=== PATIENT | female | born 1980 | race Caucasian/White ===

== ENCOUNTER 2018-07-17 11:05 | Emergency (ER) | payer OTHER ==
--- OUTSIDE RECORDS SUMMARY | 2018-07-17 11:12 | XMS REPORT ---
:1980 External Reference #:[id number] Author Organization [facility] Address [address] [place] [address] Phone [phone] Care Team Providers Name Role Phone Mindi Skinner M.D. Care Team Information Education Research Analyst Unavailable Mindi Skinner M.D. Primary Care Physician Unavailable Payers Type Date Identification Numbers Payment Provider Subscriber Health Maintenance Effective: Policy Number: [facility] [place] [facility]) 10/01/2016 [id number] [employer] PayID: [id number] [address] [place] [address] Problems Date Description Provider Status Onset: 07/27/2017 Anxiety state Mindi Skinner M.D. Active Family History Date Family Member(s) Problem(s) Comments Father No Current Problems Mother No Current Problems Social History Type Date Description Comments Lives With Spouse Lives With Son Cigarette Use Never Smoked Cigarettes ETOH Use Rare Smoking Patient has never smoked Daily Caffeine Daily Caffeine Exercise Type/Frequency Exercises regularly Allergies, Adverse Reactions, Alerts Date Description Reaction Status Severity Comments 03/19/2017 NKDA active Medications Medication Date Status Form Strength Qnty SIG Indications Ordering Provider Nitrofurantoin 07/14/ Active Capsules 100mg 10cap take one N39.0 Awa C. Monohyd Macro 2017 s by mouth Bang, twice LAY OUT DRAFTER daily for 5 days. Phenazopyridine 07/14/ Active Tablets 200mg 4tabs take one N39.0 Awa C. HCL 2018 by mouth Bang, 3 times LAY OUT DRAFTER daily as needed for pain Alprazolam 03/19/ Active Tablets 0.5mg 15tab take one Mindi 2016 s tablet by marcy Skinner M.D. twice daily as needed for anxiety Tessalon Perles 10/08/ Hx Capsules 100mg 30cap take one J04.0 Awa Peck 2017 - s by mouth Bang, 3 times LAY OUT DRAFTER 2017 daily as needed for cough Acetaminophen-Cod 10/08/ Hx Tablets 300-30mg 15tab take one J06.9 Awa CKeyla cheri #3 2017 - s by mouth Bang, 07/12/ every 6 LAY OUT DRAFTER 2018 hours as needed for cough. may take 2 as one dose at bedtime. Fluticasone 06/15/ Hx Suspension 50mcg/Act 29.7m 1 puff H69.93 Mindi Propionate 2017 - l each Brody, 07/27/ buck Butt 2016 everyday No Active Unknown Medications 2016 - 2016 Immunizations CPT Code Status Date Vaccine Lot # [id number] Given 08/08/2017 Influenza Vac, Quadrivalent, Slit Virus, Im Vital Signs Date Vital Result Comment 07/14/2018 BP Systolic 104 mmHg BP Diastolic 60 mmHg Heart Rate 60 /min Body Temperature 99.0 F Respiratory Rate 16 /min Height 66 inches 5'6" Weight 127.38 lb BMI (Body Mass Index) 20.6 kg/m2 10/08/2017 BP Systolic 94 mmHg BP Diastolic 68 mmHg Heart Rate 80 /min Body Temperature 98.1 F Respiratory Rate 18 /min O2 % BldC Oximetry 96 % Height 66 inches 5'6" Weight 128.00 lb BMI (Body Mass Index) 20.7 kg/m2 10/05/2017 BP Systolic 96 mmHg BP Diastolic 50 mmHg Heart Rate 74 /min Body Temperature 98.0 F Height 66 inches 5'6" Weight 132.00 lb BMI (Body Mass Index) 21.3 kg/m2 07/27/2017 BP Systolic 122 mmHg BP Diastolic 72 mmHg Heart Rate 60 /min Body Temperature 98.6 F Height 66 inches 5'6" Weight 129.25 lb BMI (Body Mass Index) 20.9 kg/m2 07/01/2017 BP Systolic 128 mmHg BP Diastolic 84 mmHg Heart Rate 60 /min Body Temperature 97.5 F Respiratory Rate 16 /min Height 66 inches 5'6" Weight 132.00 lb BMI (Body Mass Index) 21.3 kg/m2 06/15/2017 BP Systolic 90 mmHg BP Diastolic 60 mmHg Heart Rate 48 /min Body Temperature 97.1 F Respiratory Rate 16 /min Height 66 inches 5'6" Weight 132.00 lb BMI (Body Mass Index) 21.3 kg/m2 03/19/2017 BP Systolic 92 mmHg BP Diastolic 64 mmHg Heart Rate 60 /min Body Temperature 98.4 F Respiratory Rate 16 /min Height 66 inches 5'6" Weight 130.25 lb BMI (Body Mass Index) 21.0 kg/m2 Results Test Date Test Result H/L Range Note Laboratory test finding 10/05/2017 Quickstrep negative Negative Laboratory test finding 07/27/2017 TSH 2.49 mIU/L 0.50-6.00 Complete Blood Count 07/27/2017 WBC 7.0 x10^3/UL 3.6-9.6 RBC 4.34 x10^6/UL 3.90-5.70 HGB 13.2 g/dL 12.1-17.2 HCT 38 % 36-50 MCV 89.0 fL 82.2-97.4 MCH 30.5 pg 27.6-33.3 MCHC 34.5 g/dL 33.0-35.5 RDW 13.4 % 11.6-13.7 PLT 284 x10^3/UL 150-400 MPV 7.2 fL Low 7.4-10.4 Gran # 4.7 x10^3/UL 1.5-7.2 Lymph# 2.0 x10^3/UL 0.7-4.9 [place]gs# 0.3 x10^3/UL 0.1-0.9 Gran % 66.3 % 42.2-75.2 Lymph % 28.8 % 20.5-51.1 [place]% 4.9 % 1.7-9.3 Comprehensive Metabolic Prof 07/27/2017 Sodium 139 mEq/L 134-149 Potassium 4.0 mEq/L 3.6-5.5 Chloride 102 mEq/L 94-112 Carbon Dioxide 24 mEq/L 21-32 Glucose 128 mg/dL High 70-105 BUN 16 mg/dL 6-26 Creatinine 0.7 mg/dL 0.6-1.4 BUN/Creat Ratio 22.9 CALC 8.0-36.0 Calcium 9.2 mg/dL 8.6-10.2 Total Protein 7.1 g/dL 6.4-8.3 Albumin 4.7 g/dL 3.8-5.5 Globulin 2.4 g/dL 2.0-4.8 A/G Ratio 2.0 CALC 0.6-2.3 Alk. Phosphatase 47 U/L 30-110 Alt (SGPT) 9 U/L 7-35 Ast (Sgot) 15 U/L 5-34 Total Bilirubin 0.4 mg/dL 0.2-1.3 GFR Non- >60 ml/min/1.73m^ >=60 GFR >60 ml/min/1.73m^ >=60 Ua - Non Micro (Fma) 03/19/2017 Appearance clear Color yellow Glucose, Urine (Fma/CMC/CTX) neg Bilirubin neg Ketones neg SP Grav 1.015 Blood neg PH 6.0 Protein neg Urobil 0.2 Nitrite neg Leukocytes (Fma/CMC/Centrex) neg Procedures Date CPT Code Description Status 10/08/2017 29239 Pulse Oximetry Completed Encounters Type Date Location Provider CPT E/M Dx Office Visit 10/08/2017 10:00a [place] [address] J04.0 J06.9 Office Visit 10/05/2017 3:45p Main Office Marilyn Phillips [facility] [address]697 J02.9 J04.0 Office Visit 07/27/2017 3:50p [facility] Mindi Skinner M.D. 55242 F41.9 K59.00 Office Visit 07/01/2017 11:10a Main Office Mindi Skinner M.D. 43658 R10.2 Office Visit 06/15/2017 3:00p [facility] Mindi Skinner M.D. 43338 H69.93 Office Visit 03/19/2017 3:00p [facility] Mindi Skinner M.D. 42088 N39.3 Plan of Care 07/14/2018 - Awa Cuenca NPN39.0 Urinary tract infection, site not specifiedNew Medication:Nitrofurantoin Monohyd Macro 100 mgPhenazopyridine HCL 200 mgComments:Call SANDRA if condition changes/worsens in any wayDrink plenty of fluidsAllComments:1. Patient has been queried about patient's goals/ preferences and functional/lifestyle goals at relevant visits. If relevant, describe: Has been discussed, noted above2. Treatment goals as explainedto the patient: see above3. Are there barriers to meeting treatment goals? Yes If Yes, please describe: Barriers include possible insurance limits, disease process, and difficulty with lifestyle changes4. Self-Management goals as described to the patient: Yes, see above As always, we strongly encourage a healthy diet and making physical activity a part of your every day life. If you have questions about how or where to start, please contact the office.
--- OUTSIDE RECORDS SUMMARY | 2018-07-17 11:12 | XMS REPORT ---
:1980 External Reference #:[id number] Author Organization [facility] Address [address] [place] [address] Phone [phone] Care Team Providers Name Role Phone Mindi Skinner M.D. Care Team Information Campground Caretaker Unavailable Mindi Skinner M.D. Primary Care Physician Unavailable Payers Type Date Identification Numbers Payment Provider Subscriber Health Maintenance Effective: Policy Number: [facility] [place] 10/01/2016 [id number] [employer] PayID: [id number] [address] [place] [address] Problems Date Description Provider Status Onset: 07/27/2017 [...] Macro 2017 s by mouth Bang, twice HERB GROWER daily for 5 days. Phenazopyridine 07/14/ Active Tablets 200mg 4tabs take one N39.0 Awa C. HCL 2018 by mouth Bang, 3 times HERB GROWER daily as needed for pain Alprazolam 03/19/ Active Tablets 0.5mg 15tab take one Mindi 2016 s tablet by marcy Skinner M.D. twice daily as needed for anxiety Tessalon Perles 10/08/ Hx Capsules 100mg 30cap take one J04.0 Awa Peck 2017 - s by mouth Bang, 3 times HERB GROWER 2017 daily as needed for cough Acetaminophen-Cod 10/08/ Hx Tablets 300-30mg 15tab take one J06.9 Awa CKeyla cheri #3 2017 - s by mouth Bang, 07/12/ every 6 HERB GROWER 2018 hours as needed for cough. may take 2 as one dose at bedtime. Fluticasone 06/15/ Hx Suspension 50mcg/Act 29.7m 1 puff H69.93 Mindi Propionate 2017 - l each Brody, 07/27/ buck Butt 2016 everyday No Active Unknown Medications 2016 - 2016 Immunizations CPT Code Status Date Vaccine Lot # [id number] Given 08/08/2017 Influenza Vac, Quadrivalent, Slit Virus, [...] Test Date Test Result H/L Range Note Ua - Micro (Fma) 07/14/2018 Appearance clear Color yellow Glucose, Urine (Fma/CMC/CTX) neg Bilirubin neg Ketones neg SP Grav 1.020 Blood trace-Lysed PH 6.5 Protein neg Urobil 0.2 Nitrite neg Leukocytes (Fma/CMC/Centrex) Trace Hyaline <pending> /Lpf Granular <pending> /Lpf WBC (Fma,Centrex) <pending> RBC <pending> Mucus <pending> /Lpf Epith <pending> /Lpf Bacteria <pending> /Hpf Amorphous <pending> /Lpf Crystals, Fluid (Fma/CMC/CTX) <pending> Z#Comments <pending> Laboratory test finding 10/05/2017 Quickstrep negative Negative [...] 4.7 x10^3/UL 1.5-7.2 Lymph# 2.0 x10^3/UL 0.7-4.9 [place]# 0.3 x10^3/UL 0.1-0.9 Gran % 66.3 % 42.2-75.2 Lymph % 28.8 % 20.5-51.1 [place]% 4.9 % 1.7-9.3 Comprehensive Metabolic Prof 07/27/2017 [...] Procedures Date CPT Code Description Status 10/08/2017 95627 Pulse Oximetry Completed Encounters Type Date Location Provider CPT E/M Dx Office Visit 10/08/2017 10:00a [place] [address] J04.0 J06.9 Office Visit 10/05/2017 3:45p Main Office RUI Shoemaker 28919 J02.9 J04.0 Office Visit 07/27/2017 3:50p [facility] Mindi Skinner M.D. 29816 F41.9 K59.00 Office Visit 07/01/2017 11:10a Main Office Mindi Skinner M.D. 29644 R10.2 Office Visit 06/15/2017 3:00p [facility] Mindi Skinner M.D. 70964 H69.93 Office Visit 03/19/2017 3:00p [facility] Office Mindi Skinner M.D. 53689 N39.3 Plan of Care 07/14/2018 - Awa Cuenca, NPN39.0 Urinary tract infection, site not specifiedNew [...]
[2018-07-17 11:16] VITALS: BP 136/84
--- NOTE | 2018-07-17 11:39 | UC ---
Complaint Female HPI - HPI Summary HPI Summary: pt was seen 3 days ago for UTI, rx'd nitrofurontoin, feeling only slightly better. still has burning frequent urine denies back pain - History Of Current Complaint Chief Complaint: UCGU Stated Complaint: URINARY ISSUE Time Seen by Provider: 07/17/18 11:22 Hx Obtained From: Patient Hx Last Menstrual Period: 07/05/18 ?: No Onset/Duration: Gradual Onset Severity Currently: Mild Pain Intensity: 3 Character: Burning Aggravating Factor(s): Urination Associated Signs And Symptoms: Positive: Negative. Negative: Fever, Back Pain, Vaginal Bleeding/Discharge - Allergies/Home Medications Allergies/Adverse Reactions: Allergies Allergy/AdvReac Type Severity Reaction Status Date / Time No Known Allergies Allergy Verified 07/17/18 11:17 PMH/Surg Hx/FS Hx/Imm Hx Previously Healthy: Yes - Surgical History Surgical History: None Surgery Procedure, Year, and Place: right eye surgery - Family History Known Family History: Negative: Cardiac Disease - Social History Occupation: Employed Full-time - teacher Lives: With Family Alcohol Use: None Substance Use Type: None Smoking Status (MU): Never Smoked Tobacco Review of Systems Constitutional: Negative Respiratory: Negative Cardiovascular: Negative Genitourinary: Dysuria, Frequency Musculoskeletal: Negative Neurological: Negative Psychological: Negative Is Patient Immunocompromised?: No All Other Systems Reviewed And Are Negative: Yes Physical Exam Triage Information Reviewed: Yes Appearance: Well-Appearing, No Pain Distress, Well-Nourished Vital Signs: Initial Vital Signs Temp 98.8 F 07/17/18 11:12 Pulse 104 07/17/18 11:12 Resp 12 07/17/18 11:12 BP 136/84 07/17/18 11:12 Pulse Ox 100 07/17/18 11:12 Vital Signs Reviewed: Yes Respiratory Exam: Normal Cardiovascular Exam: Normal Abdomen Description: Positive: Nontender, No Organomegaly, Soft. Negative: CVA Tenderness (R), CVA Tenderness (L) Psychological Exam: Normal Skin Exam: Normal Complaint Female Dx - Differential Dx/Diagnosis Differential Diagnosis/HQI/PQRI: Ureteral Stone, Urinary Tract Infection Provider Diagnoses: UTI Discharge - Sign-Out/Discharge Documenting (check all that apply): Patient Departure All imaging exams completed and their final reports reviewed: No Studies - Discharge Plan Condition: Good Disposition: HOME Prescriptions: Ciprofloxacin TAB* [Cipro 500 MG TAB*] 500 mg PO BID #10 tab Referrals: Mindi Skinner MD [Primary Care Provider] - 2 Days (if no better) Additional Instructions: stop current antibiotic Start cipro and take as prescribed Drink plenty of fluids - Billing Disposition and Condition Condition: GOOD Disposition: Home
== END 2018-07-17 11:49 | disposition home or self-care (01) ==
LOC: UCEAST 11:05
DX: N39.0 Urinary tract infection, site not specified (principal)
CPT/HCPCS: 81003; 87086; 99212; G0463

== ENCOUNTER 2018-07-31 05:05 | Emergency (ER) | payer OTHER ==
[2018-07-31] MEDS ORDERED: NS 0.9% 1000 ML* 1,000 ML IV ONE (05:29)
--- NOTE | 2018-07-31 05:30 | ED ---
Abdominal Pain/Female - HPI Summary HPI Summary: The pt is a 37 y/o female [facility] c/o of diffuse abd pain since 1 day ago worse today. The pain rated in severity is unrelieved by a heating pad. She denies nausea, vomiting, diarrhea, fever, SOB,CP and blood in urine. - History of Current Complaint Chief Complaint: EDAbdPain Stated Complaint: ABD PAIN Time Seen by Provider: 07/31/18 05:22 Hx Obtained From: Patient Hx Last Menstrual Period: 07/05/18 Severity Currently: Moderate Pain Intensity: 5 Pain Scale Used: 0-10 Numeric Location: Diffuse Associated Signs and Symptoms: Negative: Fever, Chest Pain, Urinary Symptoms - Blood in urine, Nausea, Vomiting Allergies/Adverse Reactions: Allergies Allergy/AdvReac Type Severity Reaction Status Date / Time No Known Allergies Allergy Verified 07/17/18 11:17 PMH/Surg Hx/FS Hx/Imm Hx Previously Healthy: No Musculoskeletal History: Denies: Hx Rheumatoid Arthritis, Hx Osteoporosis Sensory History: Denies: Hx Deafness Opthamlomology History: Denies: Hx Legally Blind - Surgical History Surgery Procedure, Year, and Place: right eye surgery Infectious Disease History: No Infectious Disease History: Denies: Traveled Outside the [place] in Last 30 Days - Family History Known Family History: Negative: Cardiac Disease - Social History Occupation: Employed Full-time Lives: With Family Alcohol Use: None Substance Use Type: Reports: None Smoking Status (MU): Never Smoked Tobacco Review of Systems Negative: Chest Pain Negative: Shortness Of Breath Positive: Abdominal Pain. Negative: Vomiting, Diarrhea, Nausea Genitourinary: Negative - Blood in urine All Other Systems Reviewed And Are Negative: Yes Physical Exam - Summary Physical Exam Summary: Appearance: Well appearing, no pain distress Skin: warm, dry, reflects adequate perfusion Head/face: normal Eyes: EOMI, DARRION ENT: normal Neck: supple, non-tender Respiratory: CTA, breath sounds present Cardiovascular: RRR, pulses symmetrical Abdomen: Tenderness in the RLQ , soft Bowel sounds : present Musculoskeletal: normal, strength/ROM intact Neuro: normal, sensory motor intact, A&Ox3 Triage Information Reviewed: Yes Vital Signs On Initial Exam: Initial Vitals Temp Pulse Resp BP Pulse Ox 99.1 F 124 16 133/80 99 07/31/18 05:06 07/31/18 05:06 07/31/18 05:06 07/31/18 05:06 07/31/18 05:06 Vital Signs Reviewed: Yes Diagnostics - Vital Signs Vital Signs Temp Pulse Resp BP Pulse Ox 07/31/18 05:06 99.1 F 124 16 133/80 99 - Laboratory Result Diagrams: 07/31/18 05:59 07/31/18 05:59 Lab Statement: Any lab studies that have been ordered have been reviewed, and results considered in the medical decision making process. Abdominal Pain Fem Course/Dx - Course Course Of Treatment: A 37 year-old F presents to the ED with a CC of diffuse abd pain since 1 day ago worse today. The pain rated in severity is unrelieved by a heating pad. She denies nausea, vomiting, diarrhea, fever, SOB,CP and blood in urine. A physical exam revealed tenderness in the RLQ. In the ED course ,the pt was given N,s 0.9% 1000ml IV which improved the symptoms. The pt was signed out to Dr. Maulik Wade MD at 07:00 duie to pending radiology reports. Allergies noted. - Diagnoses Differential Diagnosis: Positive: Appendicitis, Diverticulitis, Renal Colic Provider Diagnoses: Diverticulitis Discharge - Sign-Out/Discharge Documenting (check all that apply): Sign-Out Patient Signing out patient TO: Maulik Wade - 07:00- Pending imaging results - Discharge Plan Condition: Stable Disposition: HOME Prescriptions: Ciprofloxacin TAB* [Cipro 500 MG TAB*] 500 mg PO BID #20 tab metroNIDAZOLE TAB* [Flagyl 250 mg TAB*] 250 mg PO TID #30 tab Patient Education Materials: Ciprofloxacin (By mouth), Metronidazole (By mouth) , Diverticulitis (ED) Referrals: Mindi Skinner MD [Primary Care Provider] - 2 Days Additional Instructions: Return to the emergency department for new or worsening symptoms. - Billing Disposition and Condition Condition: STABLE Disposition: Home - Attestation Statements Document Initiated by Scribe: Yes Documenting Scribe: Dipti Jimenez Provider For Whom Scribe is Documenting (Include Credential): Dr. Calvin Waterman MD Scribe Attestation: Dipti Martines, scribed for Dr. Calvin Waterman MD on 07/31/18 at 2243. Scribe Documentation Reviewed: Yes Provider Attestation: The documentation as recorded by the scribe, Dipti Jimenez accurately reflects the service I personally performed and the decisions made by me, Dr. Calvin Waterman MD
--- OUTSIDE RECORDS SUMMARY | 2018-07-31 05:37 | XMS REPORT ---
:1980 External Reference #:[id number] Author Organization [facility] Address [address] [place] [address] Phone [phone] Care Team Providers Name Role Phone Mindi Skinner M.D. Care Team Information Bed Worker Unavailable Mindi Skinner M.D. Primary Care Physician Unavailable Payers Type Date Identification Numbers Payment Provider Subscriber Health Maintenance Effective: Policy Number: [facility] ([facility] [place] 10/01/2016 [id number] [employer] PayID: [id number] [address] [place] [address] Problems Date Description Provider Status Onset: 07/27/2017 [...] Macro 2017 s by mouth Bang, twice DATA SCIENTIST daily for 5 days. Phenazopyridine 07/14/ Active Tablets 200mg 4tabs take one N39.0 Awa C. HCL 2018 by mouth Bang, 3 times DATA SCIENTIST daily as needed for pain Alprazolam 03/19/ Active Tablets 0.5mg 15tab take one Mindi 2016 s tablet by marcy Skinner M.D. twice daily as needed for anxiety Tessalon Perles 10/08/ Hx Capsules 100mg 30cap take one J04.0 Awa Peck 2017 - s by mouth Bang, 3 times DATA SCIENTIST 2017 daily as needed for cough Acetaminophen-Cod 10/08/ Hx Tablets 300-30mg 15tab take one J06.9 Awakristen alonzo #3 2017 - s by mouth Bang, 07/12/ every 6 DATA SCIENTIST 2018 hours as needed for cough. may take 2 as one dose at bedtime. Fluticasone 06/15/ Suspension 50mcg/Act 29.7m 1 puff H69.93 Mindi Propionate 2017 - l each Brody, 07/27/ buck Butt 2016 everyday No Active Unknown Medications 2016 - 2016 Immunizations CPT Code Status Date Vaccine Lot # [id number] Given 08/08/2017 Influenza Vac, Quadrivalent, Slit Virus, Im Vital Signs Date Vital Result Comment 07/19/2018 BP Systolic 120 mmHg BP Diastolic 68 mmHg Heart Rate 88 /min Body Temperature 97.8 F Respiratory Rate 16 /min Height 66 inches 5'6" Weight 127.00 lb BMI (Body Mass Index) 20.5 kg/m2 07/14/2018 BP Systolic 104 mmHg BP Diastolic [...] Test Date Test Result H/L Range Note Urine Culture And 07/17/2018 Urine Culture SEE RESULT BELOW 1, 2 Sensitivities Poc Urinalysis 07/17/2018 Poc Glucose, Negative Negative Urine Poc Bilirubin, Urine Negative Negative Poc Ketone, Urine Negative Negative Poc Specific [place], Urine 1.020 1.010-1.030 Poc Blood, Urine Trace-intact Negative Poc pH, Urine 7.0 5-9 Poc Protein, Urine Negative Negative Poc Urobilinogen, Urine 0.2 Negative Poc Nitrite, Urine Negative Negative Poc Leukocytes, Urine Negative Negative Poc Color, Urine Yellow Poc Clarity, Urine Clear 3 Ua - Micro (Fma) 07/14/2018 Appearance clear Color yellow Glucose, Urine (Fma/CMC/CTX) neg Bilirubin neg Ketones neg SP Grav 1.020 Blood trace-Lysed PH 6.5 Protein neg Urobil 0.2 Nitrite neg Leukocytes (Fma/CMC/Centrex) Trace WBC (Fma,Centrex) 1-2 RBC 0-1 Epith occ /Lpf Bacteria trace /Hpf Laboratory test finding 10/05/2017 Quickstrep negative Negative [...] 4.7 x10^3/UL 1.5-7.2 Lymph# 2.0 x10^3/UL 0.7-4.9 [place]# 0.3 x10^3/UL 0.1-0.9 Gran % 66.3 % 42.2-75.2 Lymph % 28.8 % 20.5-51.1 [place]% 4.9 % 1.7-9.3 Comprehensive Metabolic Prof 07/27/2017 [...] Urobil 0.2 Nitrite neg Leukocytes (Fma/CMC/Centrex) neg 1 [id number] 2 SEE RESULT BELOW Name: MARILYN RAMÍREZ : [address]: Flo Lee MD Acct: [id number] Unit: [id number] AGE: 37 Location: [facility] Re07/17/18 SEX: F Status: DEP ER SPEC: [id number] JUAN: 07/17/18-[address] [facility] [address]: Cherry Beaulieu DATA SCIENTIST REQ: [id number] RECD: 07/17/18135 STATUS: ROSALIO HUNTLEY DR: Mindi Skinner MD [facility] _ SOURCE: URINE SPDESC: ORDERED: Urine Culture COMMENTS: [id number] Procedure Result Reported Site Urine Culture Final 07/18/18- 1215 ML No Growth (<1,000 CFU/mL) * ML - Main Lab . END OF REPORT DEPARTMENT OF PATHOLOGY, [address] [place] [address] Jose Larsen M.D. Director [facility] # [id number] 3 Light Bulb Tester: [id number] Procedures Date CPT Code Description Status 10/08/2017 37555 Pulse Oximetry Completed Encounters Type Date Location Provider CPT E/M Dx Office Visit 07/14/2018 6:45p [place] [address] N39.0 Office Visit 10/08/2017 10:00a [place] [address] J04.0 J06.9 Office Visit 10/05/2017 3:45p Main Office Marilyn Medranobetsy [facility] [address]267 J02.9 J04.0 Office Visit 07/27/2017 3:50p [facility] Office Mindi Skinner M.D. 97907 F41.9 K59.00 Office Visit 07/01/2017 11:10a Main Office Mindi Skinner M.D. 39342 R10.2 Office Visit 06/15/2017 3:00p [facility] Mindi Skinner M.D. 17589 H69.93 Office Visit 03/19/2017 3:00p [facility] Office Mindi Skinner M.D. 83574 N39.3 Plan of Care 07/19/2018 - Melba Hopkins, JUNIORN39.0 Urinary tract infection, site not specifiedNew Labs:Ua - Micro (Fma)Urine Culture & SensitivityNuswab VG+ Comments:take a total of 3 days of cipro then discontinue since UA clear, drink plenty of fluids, call if symptoms don't improve, you develop fever >100.4, vomiting or symptoms worsen Advised to call the office if experiencing symptoms. Patient verbalized understanding. UA marked improvement - no red blood cells, no WBC, no bacteria, no nitrates.R10.30 Lower abdominal pain, unspecifiedNew Xrays:Ultrasound Transvaginal Non-OBComments:patient instructed to call back if condition fails to improve or worsens. suspect BV due to pH but will await results from cultures.Z12.4 Encounter for screening for malignant neoplasm of cervixComments:I performed a pap smear, I will call you with abnormal results or send you a letter with normal results.AllComments:~B_~U_ Medication Management~b_~u_ Patient Understands medications he 's taking? Yes No Are there Barriers to Adherence? Yes No Has the patient been asked about herbal supplements and therapies, and OTC meds? Yes No ~B_~U_Care Plan~b_~u_1. Patient has been queried about patient's goals/ preferences and functional/lifestyle goals at relevant visits. If relevant, describe: na2. Treatment goals as explained to the patient: above3. Are there barriers to meeting treatment goals? Yes No If Yes, please describe:4. Self-Management goals as described to the patient:Yes NoAs always, we strongly encourage a healthy diet and making physical activity a part of your every day life. If you have questions about how or where to start, please contact the office.
[2018-07-31 06:06] LABS: ABS Basophils 0 10^3/ul (0-0.2); ABS Eosinophils 0.1 10^3/ul (0-0.6); ABS Monocytes 0.9 10^3/ul (0-0.8); ABS Neutrophils 10.1 10^3/ul (1.5-7.7); ABS Nucleated RBC 0 10^3/ul; Hematocrit 40 % (35-47); Hemoglobin 13.6 g/dl (12.0-16.0); Lymphocyte % 8.2 % (25-47); Mean Corpuscular HGB Conc 34 g/dl (31-36); Mean Corpuscular Hemoglobin 30 pg (27-31); Mean Corpuscular Volume 87 fL (80-97); Mean Platelet Volume 8.7 um3 (7.4-10.4); Nucleated Red Blood Cells % 0.1; Platelet Count 218 10^3/ul (150-450); Red Blood Count 4.59 10^6/ul (4.00-5.40); Red Cell Distribution Width 13 % (10.5-15); White Blood Count 12.2 10^3/ul (3.5-10.8)
[2018-07-31 06:15] LABS: INR 1.02 (0.77-1.02)
[2018-07-31 06:23] LABS: EGFR Non-African American 89.2 (>60)
[2018-07-31 07:26] LABS: Urine Appearance Cloudy; Urine Blood Negative (Negative); Urine Color Yellow; Urine Ketones Negative (Negative); Urine Protein Negative (Negative); Urine Specific Gravity 1.009 (1.010-1.030); Urine Urobilinogen Negative (Negative)
[2018-07-31] MEDS ORDERED: Iohexol 300* (CONTRAST) 10 ML SDV IV ONE (07:49)
--- NOTE | 2018-07-31 07:50 | ED ---
Progress - Progress Note Progress Note: HPI This patient is a 37 year old F presenting to [facility] accompanied by family with a chief complaint of RLQ abd pain that began on 07/30/2018 upon waking up. The patient rates the pain 6/10 in severity. Symptoms aggravated by nothing. Symptoms alleviated by nothing. Patient reports nausea and fever. Patient denies vaginal discharge and vaginal bleeding. Pt reports her last menstrual cycle was on 07/05/2018. PE VITAL SIGNS: Reviewed. GENERAL: Patient is a well-developed and nourished female who is lying comfortable in the stretcher. Patient is not in any acute respiratory distress. HEAD AND FACE: Normocephalic and atraumatic. EYES: PERRLA, EOMI x 2, No injected conjunctiva. EARS: Hearing grossly intact. Ear canals and tympanic membranes are WNL. MOUTH: Oropharynx within normal limits. NECK: Supple, trachea is midline, no adenopathy, no JVD. CHEST: Symmetric, no tenderness at palpation LUNGS: Clear to auscultation bilaterally. No wheezing or crackles. CVS: RRR, S1 and S2 present, no murmurs or gallops appreciated. ABDOMEN: Soft. No signs of distention. Positive bowel sounds. No rebound no guarding, and no masses palpated. No abdominal bruit or pulsations. Tenderness in RLQ. EXTREMITIES: FROM in all major joints, no edema, no cyanosis or clubbing. NEURO: Alert and oriented x 3. No acute neurological deficits. Speech is normal. SKIN: Dry and warm DIAG CT CT abdomen and pelvis reveals, per radiologist, 1. Normal appendix. 2. THERE IS IRREGULAR CIRCUMFERENTIAL MUCOSAL THICKENING OF THE SIGMOID COLON WITH AN ASSOCIATED DIVERTICULUM. THE DIFFERENTIAL INCLUDES AN INFECTIOUS OR NONINFECTIOUS INFLAMMATORY COLITIS. COLONIC MUCOSAL NEOPLASM IS ALSO WITHIN THE DIFFERENTIAL. RECOMMEND CONSIDERATION OF CORRELATION WITH DIRECT VISUALIZATION. ED physician has reviewed this radiology report. Course/Dx - Course Course Of Treatment: CT abdomen and pelvis reveals, per radiologist, 1. Normal appendix. 2. THERE IS IRREGULAR CIRCUMFERENTIAL MUCOSAL THICKENING OF THE SIGMOID COLON WITH AN ASSOCIATED DIVERTICULUM. THE DIFFERENTIAL INCLUDES AN INFECTIOUS OR NONINFECTIOUS INFLAMMATORY COLITIS. COLONIC MUCOSAL NEOPLASM IS ALSO WITHIN THE DIFFERENTIAL. RECOMMEND CONSIDERATION OF CORRELATION WITH DIRECT VISUALIZATION. I discussed the case with Dr. Plunkett who came and saw the patient. He thinks the patient has diverticulitis, and recommended Cipro 500 mg BID and Flagyl 250 mg TID. Patient will be discharged home and follow up with PCP. - Diagnoses Provider Diagnoses: Diverticulitis - Provider Notifications Discussed Care Of Patient With: Justin Plunkett Time Discussed With Above Provider: 09:46 Instructed by Provider To: Other - Consult with Dr. Plunkett (Gastro) at 0946. He agrees to see the pt in the ED. Consult with Dr. Plunkett (Gastro) at 1035. He communicated that he believes the patient has diverticulitis. Discharge - Sign-Out/Discharge Documenting (check all that apply): Patient Departure - Discharge home, Receiving Sign-Out Receiving patient FROM: Calvin Waterman - Upon shift change pending CT - Discharge Plan Condition: Stable Disposition: HOME Prescriptions: Ciprofloxacin TAB* [Cipro 500 MG TAB*] 500 mg PO BID #20 tab metroNIDAZOLE TAB* [Flagyl 250 mg TAB*] 250 mg PO TID #30 tab Patient Education Materials: Ciprofloxacin (By mouth), Metronidazole (By mouth) , Diverticulitis (ED) Referrals: Mindi Skinner MD [Primary Care Provider] - 2 Days Additional Instructions: Return to the emergency department for new or worsening symptoms. - Attestation Statements Document Initiated by Scribe: Yes Documenting Scribe: Awa Dennis Provider For Whom Scribe is Documenting (Include Credential): Maulik Wade MD Scribe Attestation: Awa Martines, scribed for Maulik Wade MD on 07/31/18 at 1116.
--- NOTE | 2018-07-31 08:23 | RAD ---
CLINICAL HISTORY: rt lower quad tend r/o appendicitis COMPARISON: None TECHNIQUE: Multiple contiguous axial CT scans were obtained of the abdomen and pelvis after the administration of intravenous contrast. Coronal and sagittal multiplanar reformations are submitted for review. Oral contrast was administered. Delayed images were obtained through the abdomen. FINDINGS: LUNG BASES: The lung bases are clear. LIVER: There is a Daniel's lobe of the liver. BILE DUCTS: There is no intrahepatic or extrahepatic biliary dilatation. GALLBLADDER: The gallbladder is normal, without pericholecystic inflammatory change. PANCREAS: The pancreas is normal, without mass or ductal dilatation. SPLEEN: Normal in size and appearance. UPPER GI TRACT: Evaluation of the gastrointestinal tract is limited by incomplete gastric distention. The upper GI tract is unremarkable. SMALL BOWEL AND MESENTERY: The small bowel is normal in contour, course, and caliber. There is no obstruction or dilatation. COLON: There is a tubular, vermiform, hollow viscus that is blind ending, and originates from the cecum, consistent with a normal appendix. There is no periappendiceal inflammatory change. This is best seen on coronal images 36 through 41 and axial images 62 through 68. Additionally, there is irregular circumferential mucosal thickening of the sigmoid colon, with a 0.8 cm diverticulum. This is best seen on coronal image 33 and axial image 64. ADRENALS: Normal bilaterally. KIDNEYS: The kidneys are normal in shape, size, contour, and axis. There is no hydronephrosis or nephrolithiasis. BLADDER: The bladder is smooth in contour. PELVIC ORGANS: There is a 2.2 cm simple cyst of left ovary. The pelvic organs are otherwise unremarkable for age and technique. AORTA: The aorta is normal. IVC: Unremarkable LYMPH NODES: There is no lymphadenopathy by size criteria. ABDOMINAL WALL: There is no evidence for abdominal wall hernia. BONES AND SOFT TISSUES: Mild degenerative changes are noted, with a limbus vertebral body versus ununited ring apophysis of L4. There is a transitional S1 vertebral body. OTHER: None IMPRESSION: 1. NORMAL APPENDIX. 2. THERE IS IRREGULAR CIRCUMFERENTIAL MUCOSAL THICKENING OF THE SIGMOID COLON WITH AN ASSOCIATED DIVERTICULUM. THE DIFFERENTIAL INCLUDES AN INFECTIOUS OR NONINFECTIOUS INFLAMMATORY COLITIS. COLONIC MUCOSAL NEOPLASM IS ALSO WITHIN THE DIFFERENTIAL. RECOMMEND CONSIDERATION OF CORRELATION WITH DIRECT VISUALIZATION.
[2018-07-31] MEDS ORDERED: Ondansetron INJ* 2 MG/ML VIAL IV ONE (09:51)
[2018-07-31] MEDS ORDERED: Ondansetron INJ* 2 MG/ML VIAL ONE (09:53)
[2018-07-31] MEDS ORDERED: Ciprofloxacin TAB* 250 MG PO ONE (10:39)
[2018-07-31] MEDS ORDERED: metroNIDAZOLE TAB* 250 MG PO ONE ×2 (10:39→10:45)
[2018-07-31] MEDS ORDERED: Ciprofloxacin TAB* 500 MG PO ONE (10:45)
[2018-07-31 11:07] VITALS: BP 110/79
--- NOTE | 2018-07-31 19:04 | CONS ---
GASTROENTEROLOGY CONSULT: DATE OF CONSULT: 07/31/18 - EMERGENCY DEPT CONSULTING PHYSICIAN: Maulik Wade MD, emergency room. REASON FOR CONSULT: Lower abdominal pain and elevated white count of [address] scan showing swelling in an area of sigmoid colon with adjacent diverticulum. 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 She had a couple of normal stools in the morning, but pain continued. She felt a little bit feverish, but did not have a documented fever or chills. Pain continued and with some intermittent awakenings through the night. Pain became worse at around 4 a.m. and she came to the emergency room. The pain is infraumbilical, symmetric, maybe a little bit more left lower quadrant sensitivity. All these seemed to start around 07/14/18 when she had a sense of suprapubic pressure and urgency, thought maybe she had had a UTI (she had had previous one a few years back), and she was seen at her primary office and placed on nitrofurantoin. Three days later, with no improvement, she went to [facility], has had been suggested and was given 3 days of Cipro. In followup at her primary office on 07/19/18, her urine was clear. She had a pelvic exam. She was feeling better and that continued for some time. She was having 1 loose stool in the morning, which was typical, she says, during the teaching year. There was not sustained diarrhea or any fever or rectal bleeding. She was quite hungry on 07/29/18, and had [employer] fish starks and a couple of cheese tortillas. She admits she was very hungry. Around 1 a.m., her stomach hurt and it was in the lower abdomen. She had a couple of normal stools that morning and continued to feel discomfort. She had a restless night with some awakenings with pain and then things were worse this morning at 4 a.m. and she came to the emergency room. Here, she has been afebrile, had a white count of 12.2, CRP 18, and CT scan shows a normal appendix (her chief concern) and swelling of the sigmoid colon. She has never been treated for long-term gastrointestinal problems. She does get bloated with apples and also elderberry. She is prone to loose stools when under stress. PAST MEDICAL HISTORY: Essentially benign. She has a 3-year-old. SOCIAL HISTORY: She is from [facility]. 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 Her mother is with her in the ER. REVIEW OF SYSTEMS: No history of asthma, TB, hemoptysis, palpitations, syncope , cardiac disease, hepatitis, jaundice. She is allergic to BRENDA with an exposure in [facility] being her first experience. She has had 1 prior UTI. There is no history of abdominal surgery. PHYSICAL EXAM: She is a slender, healthy-appearing woman, with mildly disconjugate gaze. She is in no distress overtly. Her temp 99.1 at admission, was 100.2 at discharge. HEENT exam is unremarkable. She has no icterus. She has no adenopathy. Her lungs are clear. Heart sounds are regular. Her abdomen is flat, symmetric, without scars, and bowel sounds are normal. There is some mild infraumbilical tenderness, a little more in the left lower quadrant. Rectal: Deferred due to the clear history of normal nonbloody stools without overt diarrhea. Extremities are unremarkable with no edema. Neurologic is nonfocal. IMPRESSION: This 37-year-old woman with no chronic history of gastrointestinal complaints and symptoms of urinary tract infection that apparently are not from that (lack of response to antibiotics and negative urine culture on 07/17/18), probably has diverticulitis. She gives a history of functional bowel disease and not a history of loose stools suggestive of inflammatory bowel disease. She has no vascular risk factors and without any bleeding, ischemic colitis is unlikely. A diverticulum was seen on the CT scan. PLAN/RECOMMENDATIONS: Treating her for 2 weeks for diverticulitis would be most appropriate, Cipro 500 b.i.d. and metronidazole 250 t.i.d. She asked about nursing and she would need to check with the child's technical communicator, but at age 2 , with a complexity of interpreting low frequency side effects, it would seem best not to continue nursing during the antibiotic exposure. Again, I would defer to the child's physician. [id number]/[facility] #: [id number] [facility]IMINALLY INSANEKellen
== END 2018-07-31 11:06 | disposition home or self-care (01) ==
LOC: ED 05:05
DX: K57.92 Diverticulitis of intestine, part unspecified, without perforation or abscess without bleeding (principal); R10.9 Unspecified abdominal pain
CPT/HCPCS: 36415; 74177; 80053; 81003; 83605; 83690; 84702; 85025; 85610; 85730; 86140; 96374; 99283; A9270-GY; J2405; Q9967

== ENCOUNTER 2019-10-01 08:12 | Emergency (ER) | payer OTHER ==
[2019-10-01 08:25] VITALS: BP 109/75
[2019-10-01] MEDS ORDERED: Acetaminophen TAB* 325 MG PO ONE (08:28)
[2019-10-01] MEDS ORDERED: Albuterol/Ipratropium NEB.SOL* Albuterol 2.5 MG/Ipratropium 0.5 MG 3 ML INH ONE (08:44)
--- NOTE | 2019-10-01 08:53 | UC ---
HPI Febrile Illness - HPI Summary HPI Summary: Patient presents to urgent care with progressive cough and congestion. Patient states last and Wednesday her and 4-year-old child were diagnosed with flu. Patient states on Wednesday her test was negative. Patient states her son was started on Tamiflu treatment her and she were not given prophylaxis. Patient states she's been having fevers and congestion that she assumed was related to the virus. Patient states starting yesterday she had increasing coughing. Patient states she is bringing up some brown sputum. Patient states she is a little bit of a wheeze. Denies shortness of breath but some discomfort when she takes a deep breath with a "rattle" patient has been taking Tylenol for her fever with last dose at 11:30 last p.m. No decongestant. Patient does not have an underlying history of lung disease. Patient states she is taking fluids but has decreased appetite. No abdominal pain. No rash. Patient is not . Patient does not smoke. Patient's medications as entered in the EMR by triage is reviewed. - History of Current Complaint Chief Complaint: UCGeneralIllness Time Seen by Provider: 10/01/19 08:23 Hx Obtained From: Patient Hx Last Menstrual Period: 09/13/19 Onset/Duration: Started Days Ago Initial Severity: Mild Current Severity: Mild Pain Intensity: 0 - Allergy/Home Medications Allergies/Adverse Reactions: Allergies Allergy/AdvReac Type Severity Reaction Status Date / Time franny Allergy See Comment Verified 10/01/19 08:16 Home Medications: Home Medications Pantoprazole TAB * [Protonix TAB*] 20 mg PO DAILY 10/01/19 [History Confirmed ] PMH/Surg Hx/FS Hx/Imm Hx Previously Healthy: Yes - Surgical History Surgical History: Yes Surgery Procedure, Year, and Place: right eye surgery early , 1997. arm . endoscopy 2018 - Family History Known Family History: Negative: Cardiac Disease - Social History Occupation: Employed Full-time - Schoolteacher Lives: With Family Alcohol Use: None Alcohol Amount: <1 Substance Use Type: None Smoking Status (MU): Never Smoked Tobacco Review of Systems All Other Systems Reviewed And Are Negative: Yes - I don't care Constitutional: Positive: Negative Skin: Positive: Negative Eyes: Positive: Negative ENT: Positive: Nasal Discharge, Sinus Congestion - And her son has a machine so that helps. Respiratory: Positive: Cough Cardiovascular: Positive: Negative Gastrointestinal: Positive: Negative Genitourinary: Positive: Negative Physical Exam - Summary Physical Exam Summary: Vital Signs Reviewed: Yes A+Ox3, tired appearing, coarse cough Eyes: Conjunctiva Clear, DARRION. EOM intact mild strabismus on right ENT: Hearing grossly normal TM x 2 clear, turbinates inflammed and boggy, + PND , mmoist, uvula midline, no exudate, no erythema Neck: Positive: Supple Respiratory: Positive: coarse coarse cough, scattered exp wheeze, slight rhonci right. + BS throughout no accessory muscle use Cardiovascular: RRR tachycardic nl s1, s2 no m/r CBT <2 sec abd soft + BS nt/nd no guarding, no distension Musculoskeletal Exam: KINCAID x 4 without difficulty Strength Intact, ROM Intact Neurological: Positive: Alert, + sensation throughout Psychological: Positive: Normal Response To examiner Skin: Positive: no rash, no ecchymosis Triage Information Reviewed: Yes Vital Signs: Initial Vital Signs Temp 102.9 F 10/01/19 08:17 Pulse 124 10/01/19 08:17 Resp 18 10/01/19 08:17 BP 109/75 10/01/19 08:17 Pulse Ox 99 10/01/19 08:17 Re-Evaluation - Re-Evaluation First Eval Change: Improved - Patient states feels much better following nebulizer. States breathing is easy air no longer feels wheezes are tight. Lung sounds are clear without wheeze. Discussed with patient at length. This is likely viral and antibiotics have little effect. Patient's concerned because her symptoms have increased. Recommend patient symptomatically support. Encourage her Motrin to keep her temperature down, high-grade, sedation precautions. Will prescribe albuterol for the MDI. Patient's son has the machine and she'll take the tubing from today. We'll prescribe amoxicillin. Patient will not start this is a 24-36 hours depending upon if her symptoms continue. Patient given note for work tomorrow as well as Wednesday. Patient comfortable with the plan. Strict return precautions discussed. Course/Dx - Course Course Of Treatment: Patient presents to urgent care for evaluation of progressive cough. Patient states her family members were diagnosed with fluent and Wednesday. Patient flu test was negative. Patient's been having fevers and some congestion for which she's been treating with Tylenol. Patient states yesterday her cough became worse and she is now bringing up brown sputum. Patient states she feels a tightness when she coughs but does not feel short of breath. Patient is not have a history of lung problems. Patient's last Tylenol was at 11:30 PM. On exam vital show an elevated temperature as well as heart rate. Sats and respiratory rate not concerning. On exam patient with sinus congestion coarse cough. Patient does have scattered wheezing with some rhonchi in the right lung marie. We'll do a DuoNeb Chest x-ray. The patient. We'll reassess. Patient comfortable in agreement with plan. - Diagnoses Provider Diagnosis: Exposure to the flu, Acute bronchitis Discharge ED - Sign-Out/Discharge Documenting (check all that apply): Patient Departure All imaging exams completed and their final reports reviewed: Yes - Discharge Plan Condition: Stable Disposition: HOME Prescriptions: Albuterol 2.5MG/3ML (0.083%)* [Ventolin 2.5 MG/3 ML NEB.RAMON*] 2.5 mg INH Q4H PRN #30 neb.ramon PRN Reason: wheeze, cough Amoxicillin PO (*) [Amoxicillin 500 MG CAP*] 500 mg PO Q12H #20 cap Patient Education Materials: Acute Bronchitis (ED), Viral Syndrome (ED) Forms: *Gen. Provider Communication, *Work Release Referrals: Luna Nye MD [Primary Care Provider] - Additional Instructions: - Stay well hydrated. Drink plenty of non-alcoholic, non-caffinated beverages. - Alternate ibuprofen (Advil, Motrin) 600mg and Tylenol every 3 hours for pain or fever. Take with food. Do NOT take for more than 4-5 days. - These infections are spread by secretions - do NOT share eating or drinking utensils - clean items you share with other people such as cell phones, computer mouse, TV remote, computer tablets,etc. Once you start to feel better, change your toothbrush and your pillowcase. - Use your nebulizer every 4 hours today and tomorrow, then every 4 hours as needed for cough or wheeze - humidify the air in the room where you sleep - boil water, run a hot steam shower, vaporizer, cups of water by heat register - okay to take over the counter decongestant and cough medication - get plenty of restful sleep. - - contact your doctor or return with questions or concerns - Billing Disposition and Condition Condition: STABLE Disposition: Home
== END 2019-10-01 09:40 | disposition home or self-care (01) ==
LOC: UCEAST 08:12
DX: J20.9 Acute bronchitis, unspecified (principal); Z20.828 Contact with and (suspected) exposure to other viral communicable diseases; Z91.09 Other allergy status, other than to drugs and biological substances
CPT/HCPCS: 71046; 99212; A9270-GY; G0463